=== PATIENT | male | born 1960 | race Caucasian/White ===

== ENCOUNTER → 2020-01-16 | Outpatient (CLI) | payer BC ==
[2020-01-16 15:42] LABS: Chol/HDL Ratio 3.62
== END | disposition home or self-care (01) ==
LOC: LABWHC1 07:21
PROVIDERS: ATTEND Internal Medicine Cardiovascular Disease
DX: E78.2 Mixed hyperlipidemia (principal)
CPT/HCPCS: 36415; 80061; 84450; 84460

== ENCOUNTER → 2020-12-25 | Outpatient (CLI) | payer BC ==
[2020-12-25 13:51] LABS: Chol/HDL Ratio 3.17; LDL Cholesterol,Calculated 63.2 mg/dL (0.0-131.0); VLDL Calculation 27.8 mg/dL (5.00-40.00)
== END | disposition home or self-care (01) ==
LOC: LABWHC1 07:37
PROVIDERS: ATTEND Internal Medicine Cardiovascular Disease
DX: E78.2 Mixed hyperlipidemia (principal)
CPT/HCPCS: 36415; 80061; 84450; 84460

== ENCOUNTER 2021-07-07 15:37 | Inpatient (IN) | payer BC ==
--- NOTE | 2021-07-07 16:10 | ED ---
Chest Pain HPI - General Source: patient, RN notes reviewed Mode of arrival: ambulatory Limitations: no limitations <Igor Cheung - Last Filed: 07/07/21 16:10> <Siria Thomas - Last Filed: 07/07/21 18:00> - General Stated Complaint: chest pain,2 nitros already,feels like heart attac Time Seen by Provider: 07/07/21 16:07 - History of Present Illness Initial Comments: 61-year-old male presents emergency Department chief complaint of chest pain. Patient states started while he was shoveling snow. Patient did take 2 nitro which alleviated most of his pain still has mild pain. Patient states he feels slightly short of breath. No pleuritic pain. Patient denies any fevers or chills. Patient has no nausea vomiting. Patient had prior GA, has one sent. Patient does see cardiology. Patient did take full dose aspirin prior arrival. (Igor Cheung) - Related Data Home Medications Medication Instructions Recorded Confirmed ALPRAZolam 0.5 mg PO BID PRN 01/10/16 07/07/21 Albuterol Sulfate [Ventolin HFA] 2 puff INHALATION RT-QID 07/07/21 07/07/21 Beclomethasone Dipropionate [Qvar 2 puff INHALATION RT-BID 07/07/21 07/07/21 40 mcg Redihaler] Metoprolol Tartrate [Lopressor] 25 mg PO BID 07/07/21 07/07/21 oxyCODONE-APAP 7.5-325MG [Percocet 1 tab PO Q8H PRN 07/07/21 07/07/21 7.5-325 mg] Previous Rx's Medication Instructions Recorded Aspirin 325 mg PO DAILY #30 tab 01/14/16 Atorvastatin [Lipitor] 80 mg PO HS #30 tab 01/14/16 Allergies Allergy/AdvReac Type Severity Reaction Status Date / Time No Known Allergies Allergy Verified 07/07/21 17:45 Review of Systems ROS Other: All systems not noted in ROS Statement are negative. <Igor Cheung - Last Filed: 07/07/21 16:10> ROS Other: All systems not noted in ROS Statement are negative. <Siria Thomas - Last Filed: 07/07/21 18:00> ROS Statement: Those systems with pertinent positive or pertinent negative responses have been documented in the HPI. 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) Past Anesthesia/Blood Transfusion Reactions: No Reported Reaction Past Psychological History: No Psychological Hx Reported Past Alcohol Use History: None Reported Past Drug Use History: Marijuana - Past Family History Mother Family Medical History: Cancer <Igor Cheung - Last Filed: 07/07/21 16:10> Course Vital Signs 07/07/21 07/07/21 16:07 17:57 Temperature 97.7 F Pulse Rate 81 70 Respiratory 18 18 Rate Blood Pressure 140/94 122/94 O2 Sat by Pulse 95 Oximetry Chest Pain MDM <Siria Thomas - Last Filed: 07/07/21 18:00> - [facility] Patient was seen and evaluated upon arrival to the emergency department. 61-year-old, known coronary artery disease presenting with exertional chest pain that resolved with nitro. Patient 325 of aspirin this morning therefore repeat dose was not indicated, he did take nitro prior to arrival with resolution of his chest pain, nitro ointment was ordered Initial EKG was nonischemic, labs and imaging were ordered. Troponin is indeterminate. Given the patient's risk factors we will plan to admit him for unstable angina. This plan was discussed with Dr. Enriquez who accepts the admission, and Dr Samaniego who agrees with ASA, Nitro, Heparin, recommends contact cardiology immediately for any recurrent chest pain. (Siria Thomas) Disposition <Igor Cheung - Last Filed: 07/07/21 16:10> Is patient prescribed a controlled substance at d/c from ED?: No <Siria Thomas - Last Filed: 07/07/21 18:00> Clinical Impression: Unstable angina Disposition: ADMITTED IP TO THIS HOSP Condition: Serious Referrals: Hesham Browne MD [Primary Care Provider] - 1-2 days
[2021-07-07] MEDS ORDERED: NITROGLYCERIN OINT 1 INCH/GM PACKET TOPICAL STA (16:38)
[2021-07-07] MEDS ORDERED: ASPIRIN 81 MG PO STA (16:38)
[2021-07-07 17:03] LABS: Basophils # (A) 0.1 k/uL (0-0.2); Basophils % (A) 1 %; Eosinophils # (A) 0.1 k/uL (0-0.7); Eosinophils % (A) 1 %; HCT 47.5 % (39.0-53.0); HGB 15.7 gm/dL (13.0-17.5); Lymphocytes # (A) 1.9 k/uL (1.0-4.8); Lymphocytes % (A) 21 %; MCH 31.5 pg (25.0-35.0); MCHC 33.2 g/dL (31.0-37.0); MCV 95.1 fL (80.0-100.0); Monocytes # (A) 0.6 k/uL (0-1.0); Monocytes % (A) 6 %; Neutrophils # (A) 6.4 k/uL (1.3-7.7); Neutrophils % (A) 70 %; Platelet Count 355 k/uL (150-450); RDW 13.9 % (11.5-15.5); WBC 9.1 k/uL (3.8-10.6)
[2021-07-07 17:07] LABS: INR 0.9 (<1.2); Partial Thromboplastin Time 22.9 sec (22.0-30.0); Prothrombin Time 9.8 sec (9.0-12.0)
[2021-07-07 17:11] LABS: Albumin 4.6 g/dL (3.5-5.0); Calcium 9.7 mg/dL (8.4-10.2); Potassium 4.2 mmol/L (3.5-5.1); Total Bilirubin 1.4 mg/dL (0.2-1.3); Total Protein 7.6 g/dL (6.3-8.2)
--- NOTE | 2021-07-07 17:40 | XR ---
EXAMINATION TYPE: XR chest 2V DATE OF EXAM: 07/07/2021 COMPARISON: 05/16/2021 HISTORY: Chest pain TECHNIQUE: 2 views FINDINGS: Heart is normal. Lungs are clear of consolidation. There are no hilar masses. Costophrenic angles are clear. Bony thorax is intact. There is some flattening of the diaphragm. IMPRESSION: No active cardiopulmonary disease. Normal heart. No change. There is probably some COPD.
[2021-07-07] MEDS ORDERED: HEPARIN SODIUM 1,000 UN/ML (10ML VL) IV ONE (17:51)
[2021-07-07] MEDS ORDERED: HEPARIN SOD,PORK IN 0.45% NACL 25,000 UNIT in 0.45% NACL 1 250ML.BAG IV SCH (18:00)
[2021-07-07] MEDS: NITROGLYCERIN OINT 1 INCH/GM PACKET TOPICAL SCH (18:56)
[2021-07-07] MEDS ORDERED: ALPRAZolam 0.5 MG TAB PO PRN (21:38)
[2021-07-07] MEDS: oxyCODONE-APAP 7.5-325MG 1 EACH TAB PO PRN (21:53)
[2021-07-07] MEDS: METOPROLOL TARTRATE 25 MG TAB PO SCH (21:54)
[2021-07-07] MEDS: ATORVASTATIN 80 MG TAB PO SCH (21:54)
[2021-07-08] MEDS ORDERED: HEPARIN SODIUM 1,000 UN/ML (10ML VL) IVP STA (02:26)
[2021-07-08] MEDS: NITROGLYCERIN OINT 1 INCH/GM PACKET TOPICAL SCH ×3 (06:53→20:19)
[2021-07-08] MEDS: ALBUTEROL NEBULIZED 2.5 MG/3 ML INHALATION SCH ×4 (08:50→19:47)
[2021-07-08] MEDS ORDERED: ASPIRIN 325 MG TAB PO SCH (09:00)
[2021-07-08] MEDS: METOPROLOL TARTRATE 25 MG TAB PO SCH ×2 (09:39→19:41)
[2021-07-08 09:49] LABS: Chol/HDL Ratio 2.72 Ratio; LDL Cholesterol,Calculated 62.7 mg/dL (0.0-131.0); VLDL Calculation 18.34 mg/dL (5.00-40.00)
[2021-07-08] MEDS ORDERED: NITROGLYCERIN SL TABS 0.4 MG TAB SUBLINGUAL PRN (10:00)
[2021-07-08] MEDS ORDERED: ALPRAZolam 0.25 MG TAB PO PRN (10:00)
[2021-07-08] MEDS ORDERED: ALPRAZolam 0.5 MG TAB PO PRN (10:00)
--- NOTE | 2021-07-08 10:04 | P.CRDCN ---
History of Present Illness History of present illness: HISTORY OF PRESENTING ILLNESS This is a pleasant 61-year-old male past medical history significant for coronary artery disease s/p PCI to mid RCA in 2016, dyslipidemia, COPD, former nicotine dependence. He follows in the office with Dr Barreto. We have been asked to see in consultation for chest pain. Patient is seen and examined in the emergency department. Patient was shoveling snow yesterday and started to have left sided chest discomfort. Describes it as heaviness, as someone sitting on his chest. This pain is similar to when he had his NC in 2016. It lasted over an hour until he arrived to the emergency department and had a nitro patch placed. He also took 2 sublingual nitros at home with some relief. Aggravated by activity. Associated symptoms include shortness of breath. He denies nausea, vomiting, diaphoresis, lightheadedness, dizziness, syncope or near syncope. He is a former smoker, quit in 2016. DIAGNOSTICS EKG reveals sinus rhythm, heart rate 79, LVH, Last Cardiac Catheterization January 2016 revealed acutely occluded RCA, left main coronary artery is heavily calcified, free of stenosis, circumflex coronary artery shows a 95% ostial stenosis. Patient underwent PCI mid RCA Most recent stress test Cardiolite 02/2020 was negative for reversible ischemia. Chest xray no acute cardiopulmonary disease. Laboratory reviewed, CBC unremarkable, sodium 138, potassium 4.2, BUN 17, serum creatinine 1.05, magnesium 2.0, proBNP 74, troponin negative-->0.26, 0.26 covid negative Current home medications include metoprolol tartrate 25 mg twice a day, atorvastatin 80 mg nightly, aspirin 325 mg daily REVIEW OF SYSTEMS At the time of my exam: CONSTITUTIONAL: Denies fever or chills. CARDIOVASCULAR: Denies chest pain, shortness of breath, orthopnea, PND or palpitations. RESPIRATORY: Denies cough. GASTROINTESTINAL: Denies abdominal pain, diarrhea, constipation, nausea or vomiting. MUSCULOSKELETAL: Denies myalgias. NEUROLOGIC: Denies numbness, tingling, headache or weakness. ENDOCRINE: Denies fatigue, weight change, polydipsia or polyurina. GENITOURINARY: Denies burning, hematuria or urgency with micturation. HEMATOLOGIC: Denies history of anemia or bleeding. PHYSICAL EXAMINATION Vitals reviewed CONSTITUTIONAL: No apparent distress. HEENT: Head is normocephalic. Pupils are equal, round. Sclerae anicteric. Mucous membranes of the mouth are moist. No JVD. No carotid bruit. CHEST EXAMINATION: Lungs are clear to auscultation. No chest wall tenderness is noted on palpation or with deep breathing. HEART EXAMINATION: Regular rate and rhythm. S1, S2 heard. No murmurs, gallops or rub. ABDOMEN: Soft, nontender. Positive bowel sounds. EXTREMITIES: 2+ peripheral pulses, no lower extremity edema and no calf tenderness. SKIN: warm,d ry NEUROLOGIC EXAMINATION: Patient is awake, alert and oriented x3. ASSESSMENT NSTEMI Coronary artery disease s/p PCI to mid RCA in 2016 Dyslipidemia History of COPD Former nicotine dependence. PLAN -Obtain 2D echocardiogram and doppler study to assess cardiac structure and function. -Recommend cardiac catheterization at this time. Patient is agreeable. Plan for cardiac catheterization with Dr. Marroquin today. -I have discussed the risks, benefits and alternative therapies for the above- mentioned procedure and for both sedation/analgesia as well as necessary blood product administration, if indicated, as they pertain to this patient. The patient has indicated understanding and acceptance of the risks and procedures discussed. Questions have been answered appropriately and he is agreeable to move forward with the above-stated procedure. -Further recommendations based on clinical course -Follow up with Dr. Marroquin on discharge Thank you kindly for this consultation. Nurse Practitioner note has been reviewed, I agree with a documented findings and plan of care. Patient was seen and examined. 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) Past Anesthesia/Blood Transfusion Reactions: No Reported Reaction Past Psychological History: No Psychological Hx Reported Past Alcohol Use History: None Reported Past Drug Use History: Marijuana - Past Family History Mother Family Medical History: Cancer Medications and Allergies Home Medications Medication Instructions Recorded Confirmed Type ALPRAZolam 0.5 mg PO BID PRN 01/10/16 07/07/21 History Aspirin 325 mg PO DAILY #30 tab 01/14/16 07/07/21 Rx Atorvastatin [Lipitor] 80 mg PO HS #30 tab 01/14/16 07/07/21 Rx Albuterol Sulfate [Ventolin HFA] 2 puff INHALATION RT-QID 07/07/21 07/07/21 History Beclomethasone Dipropionate [Qvar 2 puff INHALATION RT-BID 07/07/21 07/07/21 History 40 mcg Redihaler] Metoprolol Tartrate [Lopressor] 25 mg PO BID 07/07/21 07/07/21 History oxyCODONE-APAP 7.5-325MG [Percocet 1 tab PO Q8H PRN 07/07/21 07/07/21 History 7.5-325 mg] Allergies Allergy/AdvReac Type Severity Reaction Status Date / Time No Known Allergies Allergy Verified 07/07/21 17:45 Physical Exam Vitals: Vital Signs Temp Pulse Resp BP Pulse Ox 07/08/21 02:45 73 14 106/67 95 07/08/21 01:09 81 15 103/68 95 07/07/21 22:41 81 16 116/96 95 07/07/21 17:57 70 18 122/94 07/07/21 16:07 97.7 F 81 18 140/94 95 Intake and Output 07/07/21 07/08/21 07/08/21 22:59 06:59 14:59 Intake Total 75.833 Balance 75.833 Intake: Intake, IV Titration 75.833 Amount Heparin Sod,Pork in 0.45% 75.833 NaCl 25,000 unit In 0.45 % NaCl 1 250ml.bag @ 9. 381 UNITS/KG/HR 10 mls/hr IV .Q24H [facility] Rx#: [id number] Other: Weight 106.594 kg Results 07/07/21 16:34 07/07/21 16:34 Cardiac Enzymes 07/07/21 07/07/21 07/07/21 Range/Units 16:34 16:34 21:25 AST 41 (17-59) U/L Troponin I 0.023 0.265 H* (0.000-0.034) ng/mL 07/08/21 Range/Units 00:15 AST (17-59) U/L Troponin I 0.260 H* (0.000-0.034) ng/mL Coagulation 07/07/21 07/08/21 Range/Units 16:34 00:58 PT 9.8 (9.0-12.0) sec APTT 22.9 33.8 H (22.0-30.0) sec CBC 07/07/21 Range/Units 16:34 WBC 9.1 (3.8-10.6) k/uL RBC 5.00 (4.30-5.90) m/uL Hgb 15.7 (13.0-17.5) gm/dL Hct 47.5 (39.0-53.0) % Plt Count 355 (150-450) k/uL Comprehensive Metabolic Panel 07/07/21 Range/Units 16:34 Sodium 138 (137-145) mmol/L Potassium 4.2 (3.5-5.1) mmol/L Chloride 102 (98-107) mmol/L Carbon Dioxide 25 (22-30) mmol/L BUN 17 (9-20) mg/dL Creatinine 1.05 (0.66-1.25) mg/dL Glucose 117 H (74-99) mg/dL Calcium 9.7 (8.4-10.2) mg/dL AST 41 (17-59) U/L ALT 53 H (4-49) U/L Alkaline Phosphatase 100 (38-126) U/L Total Protein 7.6 (6.3-8.2) g/dL Albumin 4.6 (3.5-5.0) g/dL Current Medications Generic Name Dose Route Start Last Admin Trade Name Freq PRN Reason Stop Dose Admin Albuterol Sulfate 2.5 mg 07/08/21 08:00 Albuterol Nebulized 2.5 Mg/3 Ml INHALATION RT-QID AGUILAR Alprazolam 0.5 mg 07/07/21 21:38 07/07/21 21:54 Alprazolam 0.5 Mg Tab PO 0.5 mg BID PRN Administration Anxiety Aspirin 325 mg 07/08/21 09:00 Aspirin 325 Mg Tab PO DAILY AGUILAR Atorvastatin Calcium 80 mg 07/07/21 21:45 07/07/21 21:54 Atorvastatin 80 Mg Tab PO 80 mg HS AGUILAR Administration Heparin Sodium/Sodium Chloride 250 mls @ 10 mls/hr 07/07/21 18:00 07/08/21 02:37 25,000 unit/ Sodium Chloride IV 12.381 units/kg/hr .Q24H AGUILAR 13.197 mls/hr Titration Protocol 9.381 UNITS/KG/HR Metoprolol Tartrate 25 mg 07/07/21 21:45 07/07/21 21:54 Metoprolol Tartrate 25 Mg Tab PO 25 mg BID [facility] Administration Nitroglycerin 1 inch 07/07/21 18:00 07/08/21 06:56 Nitroglycerin Oint 1 Inch/Gm Packet TOPICAL Not Given Q6HR [facility] Oxycodone/Acetaminophen 1 each 07/07/21 21:38 07/07/21 21:53 Oxycodone-Apap 7.5-325mg 1 Each Tab PO 1 each Q8H PRN Administration Moderate to Severe Pain Intake and Output 07/07/21 07/08/21 07/08/21 22:59 06:59 14:59 Intake Total 75.833 Balance 75.833 Intake: Intake, IV Titration 75.833 Amount Heparin Sod,Pork in 0.45% 75.833 NaCl 25,000 unit In 0.45 % NaCl 1 250ml.bag @ 9. 381 UNITS/KG/HR 10 mls/hr IV .Q24H [facility] Rx#: [id number] Other: Weight 106.594 kg 07/07/21 16:34 07/07/21 16:34
[2021-07-08] MEDS ORDERED: fentaNYL (PF) 50 MCG/ML 2 ML AMP ONE (10:33)
[2021-07-08] MEDS ORDERED: MIDAZOLAM 2 MG/2 ML VIAL IV ONE (10:51)
[2021-07-08] MEDS ORDERED: fentaNYL (PF) 50 MCG/ML 2 ML AMP IV ONE (10:51)
[2021-07-08] MEDS ORDERED: IV FLUID CONTINUATION 900 ML IV ONE (10:51)
[2021-07-08] MEDS ORDERED: LIDOCAINE 1% INJ 10MG/ML (20 ML MDV) SQ ONE (10:53)
[2021-07-08] MEDS ORDERED: HEPARIN SODIUM 1,000 UN/ML (10ML VL) ONE (11:56)
[2021-07-08] MEDS ORDERED: ADENOSINE 90 MG in SODIUM CHLORIDE 0.9% 60 ML IVP ONE (12:15)
[2021-07-08] MEDS ORDERED: IOPAMIDOL-370 125ML BTL INJ ONE (12:19)
--- NOTE | 2021-07-08 12:57 | CE ---
CARDIAC ELECTROPHYSIOLOGY REPORT IFR MEASUREMENT: Mr. Garner is a 61-year-old male with known history of coronary artery disease status post percutaneous revascularization in 2016 who presented with an episode of chest discomfort and mild troponin elevation. He was evaluated by Dr. Marroquin and underwent cardiac catheterization and was found to have patent stent in the mid distal segment of the RCA and a moderate 50-70 percent stenosis in the mid RCA that was noted in 2016. Because of his presentation, recommendation made regarding IFR measurement and depending on that, further recommendations will be made. The procedure as well as the risks and the complications were discussed with the patient who was in full understanding and agreement. PROCEDURE DESCRIPTION: Using the 6-Sloven[place] FR4 guiding catheter, the right coronary ostium was cannulated. Following that, a Doppler flow wire was advanced across the RCA and positioned distally. The patient received 5000 units of intravenous heparin. Subsequently, IFR was measured at 0.91 and the FFR after adenosine infusion per protocol was 0.84. At that time, the wire and the guiding catheter were withdrawn back in the guiding catheter. Images were obtained and repeated. Those images revealed stable segment. At that point, the guiding catheter was removed. The sheath was sutured in place. The patient was returned to his room in stable condition. Of note, the patient had no chest discomfort during the procedure. RESULT: Non hemodynamically significant mid RCA lesion with an FFR of 0.84. RECOMMENDATIONS: Patient will be continued on maximal medical therapy and depending on his progress, further recommendations will be made. Those findings and recommendations were discussed with the patient and his family, and they are in full understanding and agreement. Duration of sedation is 21 minutes. MMODL / IJN: [id number] /
--- NOTE | 2021-07-08 13:04 | P.HPIM ---
History of Present Illness H&P Date: 07/08/21 Chief Complaint: Chest pain The patient is a history and physical on a 61-year-old white male who was admitted secondary to severe chest pressure with shortness of breath. Un derlying history of CAD and COPD in the past. Treated for hypertension hyperlipidemia and chronic pain elements. No overt diaphoresis or syncope stated. Given his risk factors he is appropriately admitted Review of Systems Constitutional: Denies chills, Denies fever Eyes: denies blurred vision, denies pain Ears, nose, mouth and throat: Denies headache, Denies sore throat Cardiovascular: Reports as per HPI, Reports chest pain, Denies palpitations Respiratory: Denies cough Gastrointestinal: Denies abdominal pain, Denies diarrhea, Denies nausea, Denies vomiting Musculoskeletal: Denies myalgias 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) Past Anesthesia/Blood Transfusion Reactions: No Reported Reaction Past Psychological History: No Psychological Hx Reported Past Alcohol Use History: None Reported Past Drug Use History: Marijuana - Past Family History Mother Family Medical History: Cancer Medications and Allergies Home Medications Medication Instructions Recorded Confirmed Type ALPRAZolam 0.5 mg PO BID PRN 01/10/16 07/07/21 History Aspirin 325 mg PO DAILY #30 tab 01/14/16 07/07/21 Rx Atorvastatin [Lipitor] 80 mg PO HS #30 tab 01/14/16 07/07/21 Rx Albuterol Sulfate [Ventolin HFA] 2 puff INHALATION RT-QID 07/07/21 07/07/21 History Beclomethasone Dipropionate [Qvar 2 puff INHALATION RT-BID 07/07/21 07/07/21 History 40 mcg Redihaler] Metoprolol Tartrate [Lopressor] 25 mg PO BID 07/07/21 07/07/21 History oxyCODONE-APAP 7.5-325MG [Percocet 1 tab PO Q8H PRN 07/07/21 07/07/21 History 7.5-325 mg] Allergies Allergy/AdvReac Type Severity Reaction Status Date / Time No Known Allergies Allergy Verified 07/07/21 17:45 Physical Exam Vitals: Vital Signs Temp Pulse Resp BP Pulse Ox 07/08/21 09:40 90 18 130/84 97 07/08/21 08:58 86 16 07/08/21 08:50 80 16 07/08/21 07:56 74 22 124/88 97 07/08/21 02:45 73 14 106/67 95 07/08/21 01:09 81 15 103/68 95 07/07/21 22:41 81 16 116/96 95 07/07/21 17:57 70 18 122/94 07/07/21 16:07 97.7 F 81 18 140/94 95 Intake and Output 07/07/21 07/08/21 07/08/21 22:59 06:59 14:59 Intake Total 75.833 606.44 Balance 75.833 606.44 Intake: IV 520 Intake, IV Titration 75.833 86.44 Amount Heparin Sod,Pork in 0.45% 75.833 86.44 NaCl 25,000 unit In 0.45 % NaCl 1 250ml.bag @ 9. 381 UNITS/KG/HR 10 mls/hr IV .Q24H [facility] Rx#: [id number] Other: Weight 106.594 kg - Constitutional General appearance: no acute distress - EENT Eyes: EOMI - Neck Neck: no lymphadenopathy - Respiratory Respiratory: bilateral: CTA - Cardiovascular Rhythm: regular Heart sounds: normal: S1, S2 Abnormal Heart Sounds: no S3 Gallop - Gastrointestinal General gastrointestinal: soft, no tenderness - Integumentary Integumentary: no cellulitis Results CBC & Chem 7: 07/07/21 16:34 07/07/21 16:34 Labs: Abnormal Lab Results - Last 24 Hours (Table) 07/07/21 07/07/21 07/08/21 Range/Units 16:34 21:25 00:15 APTT (22.0-30.0) sec Glucose 117 H (74-99) mg/dL Total Bilirubin 1.4 H (0.2-1.3) mg/dL ALT 53 H (4-49) U/L Troponin I 0.265 H* 0.260 H* (0.000-0.034) ng/mL 07/08/21 07/08/21 Range/Units 00:58 07:06 APTT 33.8 H 106.1 H* (22.0-30.0) sec Glucose (74-99) mg/dL Total Bilirubin (0.2-1.3) mg/dL ALT (4-49) U/L Troponin I (0.000-0.034) ng/mL Assessment and Plan (1) Unstable angina Current Visit: Yes Status: Acute Code(s): I20.0 - UNSTABLE ANGINA SNOMED Code(s): 2906230 (2) Chest pain Current Visit: No Status: Acute Code(s): R07.9 - CHEST PAIN, UNSPECIFIED SNOMED Code(s): 16196126 (3) Nicotine dependence Current Visit: No Status: Acute Code(s): F17.200 - NICOTINE DEPENDENCE, UNSPECIFIED, UNCOMPLICATED SNOMED Code(s): 22430092 Plan: Rule out myocardial infarction. Check CK-MB and troponin. Reconcile home medications. Appreciate cardiology input. He is a full code otherwise.
[2021-07-08] MEDS: oxyCODONE-APAP 7.5-325MG 1 EACH TAB PO PRN (13:40)
[2021-07-08] MEDS: SODIUM CHLORIDE 0.9% 1,000 ML in EMPTY BAG 1 BAG IV SCH (19:25)
[2021-07-08] MEDS: CLOPIDOGREL 75 MG TAB PO SCH (19:25)
[2021-07-08] MEDS: ISOSORBIDE MONONITRATE ER 30 MG TAB.ER.24H PO SCH (19:25)
[2021-07-08] MEDS: ATORVASTATIN 80 MG TAB PO SCH (19:41)
[2021-07-08] MEDS: FLUTICASONE 110 MCG INHALER INHALATION SCH (19:50)
[2021-07-09] MEDS: oxyCODONE-APAP 7.5-325MG 1 EACH TAB PO PRN (03:20)
[2021-07-09] MEDS: SODIUM CHLORIDE 0.9% 1,000 ML in EMPTY BAG 1 BAG IV SCH (06:54)
[2021-07-09] MEDS ORDERED: HEPARIN SODIUM,PORCINE 2,500 UNIT in SODIUM CHLORIDE 0.9% 250 ML IRRIGATION PRN (07:00)
[2021-07-09] MEDS ORDERED: HEPARIN SODIUM,PORCINE 10,000 UNIT in SODIUM CHLORIDE 0.9% 1,000 ML IRRIGATION PRN (07:00)
--- NOTE | 2021-07-09 07:47 | ECHOF ---
Referral Reason:chest pain, elevated troponin MEASUREMENTS -------- HEIGHT: 162.6 cm WEIGHT: 106.6 kg BP: IVSd: 0.9 cm (0.6 - 1.1) LVIDd: 3.1 cm (3.9 - 5.3) LVPWd: 1.1 cm (0.6 - 1.1) IVSs: 1.2 cm LVIDs: 2.5 cm LVPWs: 1.3 cm MV E Farrukh: 0.70 m/s MV DecT: 225 ms MV A Farrukh: 0.69 m/s MV E/A Ratio: 1.02 RAP: 5.00 mmHg RVSP: 13.38 mmHg FINDINGS -------- This was a technically difficult study with suboptimal views. This was a technically difficult stud y with suboptimal parasternal views. The left ventricular size is normal. Left ventricular wall thickness is normal. Overall left vent ricular systolic function is normal with, an EF between 55 - 60 %. The RV was not well visualized. The left atrium was not well visualized. The right atrium was not well visualized. Lumason used The aortic valve was not well visualized. There is trace mitral regurgitation. Trace tricuspid regurgitation present. Right ventricular systolic pressure is normal at < 35 mmHg. The pulmonic valve was not well visualized. The aortic root size is normal. IVC Not well visulized. There is no pericardial effusion. CONCLUSIONS -------- 1. This was a technically difficult study with suboptimal parasternal views. 2. The left ventricular size is normal. 3. Left ventricular wall thickness is normal. 4. Overall left ventricular systolic function is normal with, an EF between 55 - 60 %. 5. There is trace mitral regurgitation. 6. Trace tricuspid regurgitation present. 7. There is no pericardial effusion. HEALTH INFORMATION ADMINISTRATOR: Joi Balderrama RD
[2021-07-09 08:23] LABS: Basophils # (A) 0.1 k/uL (0-0.2); Basophils % (A) 1 %; Eosinophils # (A) 0.1 k/uL (0-0.7); Eosinophils % (A) 1 %; HCT 42.3 % (39.0-53.0); HGB 13.8 gm/dL (13.0-17.5); Lymphocytes # (A) 1.9 k/uL (1.0-4.8); Lymphocytes % (A) 25 %; MCH 31.1 pg (25.0-35.0); MCHC 32.7 g/dL (31.0-37.0); MCV 95.3 fL (80.0-100.0); Mean Platelet Volume 7.1; Monocytes # (A) 0.5 k/uL (0-1.0); Monocytes % (A) 6 %; Neutrophils # (A) 4.9 k/uL (1.3-7.7); Neutrophils % (A) 65 %; Platelet Count 310 k/uL (150-450); RBC 4.44 m/uL (4.30-5.90); RDW 13.5 % (11.5-15.5); WBC 7.6 k/uL (3.8-10.6)
[2021-07-09 08:34] LABS: African American GFR (CKD) >90 (>60 ml/min/1.73 sqM); Anion Gap 8 mmol/L; Blood Urea Nitrogen 12 mg/dL (9-20); Carbon Dioxide 23 mmol/L (22-30); Chloride 108 mmol/L (98-107); Glucose 115 mg/dL (74-99); Non-African American GFR(CKD) >90 (>60 ml/min/1.73 sqM); Potassium 4.3 mmol/L (3.5-5.1); Sodium 139 mmol/L (137-145)
--- NOTE | 2021-07-09 08:54 | P.DS ---
Providers Date of admission: 07/08/21 14:47 Attending physician: Brandi Garcia Consults: 07/07/21 17:51 Consult Physician Urgent Consulting Provider: Anish Samaniego Consult Reason/Comments: unstable angina Do you want consulting provider notified?: Already Contacted Primary care physician: Hesham Browne - Discharge Diagnosis(es) (1) Unstable angina Current Visit: Yes Status: Acute (2) Chest pain Current Visit: No Status: Acute (3) Nicotine dependence Current Visit: No Status: Acute Hospital Course: This is a discharge summary and a 61-year-old white male essentially admitted for unstable angina. Elevated troponin was noted and he ended up having cardiac catheterization. They did not find any significant stenosis but due to his findings, he is placed on Plavix with aspirin. The patient is discharged in stable condition once cleared by cardiology. The patient is tolerating diet and voiding without difficulty and returned to normal mental baseline. I do suspect he will need hearing aid due to presbycusis. Patient Condition at Discharge: Serious Plan - Discharge Summary Discharge Rx Participant: Yes New Discharge Prescriptions: New Aspirin 81 mg PO DAILY #30 tab Nitroglycerin Sl Tabs [Nitrostat] 0.4 mg SUBLINGUAL Q5M PRN #50 tab PRN Reason: Chest Pain Clopidogrel [Plavix] 75 mg PO DAILY #30 tab Isosorbide Mononitrate ER [Imdur] 30 mg PO DAILY #30 tablet Continue ALPRAZolam 0.5 mg PO BID PRN PRN Reason: Anxiety Aspirin 325 mg PO DAILY #30 tab Atorvastatin [Lipitor] 80 mg PO HS #30 tab Albuterol Sulfate [Ventolin HFA] 2 puff INHALATION RT-QID Beclomethasone Dipropionate [Qvar 40 mcg Redihaler] 2 puff INHALATION RT-BID oxyCODONE-APAP 7.5-325MG [Percocet 7.5-325 mg] 1 tab PO Q8H PRN PRN Reason: Pain Metoprolol Tartrate [Lopressor] 25 mg PO BID Discharge Medication List ALPRAZolam 0.5 mg PO BID PRN 01/10/16 [History] Aspirin 325 mg PO DAILY #30 tab 01/14/16 [Rx] Atorvastatin [Lipitor] 80 mg PO HS #30 tab 01/14/16 [Rx] Albuterol Sulfate [Ventolin HFA] 2 puff INHALATION RT-QID 07/07/21 [History] Beclomethasone Dipropionate [Qvar 40 mcg Redihaler] 2 puff INHALATION RT-BID 07/07/21 [History] Metoprolol Tartrate [Lopressor] 25 mg PO BID 07/07/21 [History] oxyCODONE-APAP 7.5-325MG [Percocet 7.5-325 mg] 1 tab PO Q8H PRN 07/07/21 [History] Aspirin 81 mg PO DAILY #30 tab 07/09/21 [Rx] Clopidogrel [Plavix] 75 mg PO DAILY #30 tab 07/09/21 [Rx] Isosorbide Mononitrate ER [Imdur] 30 mg PO DAILY #30 tablet 07/09/21 [Rx] Nitroglycerin Sl Tabs [Nitrostat] 0.4 mg SUBLINGUAL Q5M PRN #50 tab 07/09/21 [Rx] Follow up Appointment(s)/Referral(s): Hesham Browne MD [Primary Care Provider] - 1-2 days Sai Marrouqin MD [STAFF PHYSICIAN] - 07/15/21 10:30 am
[2021-07-09] MEDS: ALBUTEROL NEBULIZED 2.5 MG/3 ML INHALATION SCH (08:56)
[2021-07-09] MEDS: METOPROLOL TARTRATE 25 MG TAB PO SCH (08:56)
[2021-07-09] MEDS: ISOSORBIDE MONONITRATE ER 30 MG TAB.ER.24H PO SCH (08:56)
[2021-07-09] MEDS: CLOPIDOGREL 75 MG TAB PO SCH (08:56)
[2021-07-09] MEDS: FLUTICASONE 110 MCG INHALER INHALATION SCH (08:57)
[2021-07-09] MEDS ORDERED: ASPIRIN 81 MG PO SCH (09:00)
[2021-07-09 09:01] VITALS: BP 133/77; PULSE 78; RESP 18; TEMP 98.2
--- NOTE | 2021-07-09 12:57 | P.PN ---
Subjective Progress Note Date: 07/09/21 HISTORY OF PRESENT ILLNESS: This is a pleasant 61-year-old male past medical history significant for coronary artery disease s/p PCI to mid RCA in 2016, dyslipidemia, COPD, former n icotine dependence. He follows in the office with Dr Barreto. We have been asked to see in consultation for chest pain. Patient is seen and examined in the emergency department. Patient was shoveling snow yesterday and started to have left sided chest discomfort. Describes it as heaviness, as someone sitting on his chest. This pain is similar to when he had his [place] in 2016. It lasted over an hour until he arrived to the emergency department and had a nitro patch placed. He also took 2 sublingual nitros at home with some relief. Aggravated by activity. Associated symptoms include shortness of breath. He denies nausea, vomiting, diaphoresis, lightheadedness, dizziness, syncope or near syncope. He is a former smoker, quit in 2016. DIAGNOSTICS EKG reveals sinus rhythm, heart rate 79, LVH, Last Cardiac Catheterization January 2016 revealed acutely occluded RCA, left main coronary artery is heavily calcified, free of stenosis, circumflex coronary artery shows a 95% ostial stenosis. Patient underwent PCI mid RCA Most recent stress test Cardiolite 02/2020 was negative for reversible ischemia. Chest xray no acute cardiopulmonary disease. Laboratory reviewed, CBC unremarkable, sodium 138, potassium 4.2, BUN 17, serum creatinine 1.05, magnesium 2.0, proBNP 74, troponin negative-->0.26, 0.26 covid negative Current home medications include metoprolol tartrate 25 mg twice a day, atorvastatin 80 mg nightly, aspirin 325 mg daily 07/09/2021 Patient examined this morning at the bedside. He underwent cardiac cath with Dr. Marroquin and Dr. Harris. Patient was found to have nonhemodynamically significant mid RCA lesion with FFR of 0.84. Medical management was recommended. The patient denies chest pain or pressure this morning. He denies shortness of breath. Right groin cath site is soft with no hematoma noted. Vital signs are stable. PHYSICAL EXAM: VITAL SIGNS: Reviewed. GENERAL: Well-developed in no acute distress. NECK: Supple. No JVD or thyromegaly LUNGS: Respirations even and unlabored. Lungs essentially clear to auscultation bilaterally. HEART: Regular rate and rhythm. S1 and S2 heard. EXTREMITIES: Normal range of motion. No clubbing or cyanosis. Peripheral pulses intact. No lower extremity edema ASSESSMENT: NSTEMI Coronary artery disease s/p PCI to mid RCA in 2016 Dyslipidemia History of COPD Former nicotine dependence PLAN: Continue current cardiac medications Patient may be discharged home today from a cardiac standpoint and follow up with Dr. Marroquin Nurse practitioner note has been reviewed by physician. Signing provider agrees with the documented findings, assessment, and plan of care. Objective - Vital Signs Vital signs: Vital Signs Temp 98.2 F 07/09/21 08:00 Pulse 78 07/09/21 08:00 Resp 18 07/09/21 08:00 BP 133/77 07/09/21 08:00 Pulse Ox 93 L 07/09/21 08:00 Intake & Output 07/08/21 07/09/21 07/09/21 18:59 06:59 18:59 Intake Total 806.44 120 Output Total 450 400 Balance 356.44 -400 120 Weight 106.594 kg Intake: IV 720 Sodium Chloride 0.9% 1, 200 000 ml In Empty Bag 1 bag @ 1 ML/KG/HR 106.594 mls /hr IV .Q9H23M AGUILAR Rx#: [id number] Intake, IV Titration 86.44 Amount Heparin Sod,Pork in 0.45% 86.44 NaCl 25,000 unit In 0.45 % NaCl 1 250ml.bag @ 9. 381 UNITS/KG/HR 10 mls/hr IV .Q24H AGUILAR Rx#: [id number] Oral 120 Output: Urine 450 400 Other: # Voids 2 - Labs CBC & Chem 7: 07/09/21 07:35 07/09/21 07:35 Labs: Abnormal Lab Results - Last 24 Hours (Table) 07/09/21 Range/Units 07:35 Chloride 108 H (98-107) mmol/L Glucose 115 H (74-99) mg/dL
--- NOTE | 2021-07-09 14:51 | CC ---
CARDIAC CATHETERIZATION REPORT CARDIAC CATHETERIZATION: INDICATION: Acute cel-WM-bghtkko-elevation AK. PROCEDURE NOTE: After obtaining informed consent, left heart catheterization and coronary angiogram were performed via the right femoral artery using standard Caprice catheters. Patient tolerated the procedure well without any obvious immediate complications. The patient received moderate conscious sedation. Total sedation time was 18 minutes. FINDINGS: HEMODYNAMICS: Left ventricular end-diastolic pressure is 10-12 mm. There is no significant gradient across the aortic valve. LEFT VENTRICULOGRAM: Not performed. ANGIOGRAPHIC DATA: RIGHT CORONARY ARTERY: Right coronary artery is a large dominant vessel that was previously stented in the proximal and distal portions and in the mid RCA there is a moderate to severe atherosclerotic block. At its worst it seems to be at 70% stenosis. LEFT MAIN CORONARY ARTERY: Appears calcified with mild distal left main stenosis. Divides into left anterior descending coronary artery and circumflex coronary artery. The vessels are calcified. There is an area of a 70-80 percent stenosis in the ostial portion of the circumflex coronary artery, which appears unchanged from previous cardiac catheterization in 2016. The diagonal branch also has a moderate atherosclerotic plaque in the ostial portion. CONCLUSIONS: Moderate to severe obstructive disease in the mid RCA. Critical stenosis involving [place] circumflex coronary artery which appears unchanged. Calcified coronaries with an atherosclerotic plaque in the distal left main. PLAN: Dr. Harris, the on-call tool profiling machine set up operator will perform an FFR of the lesion in the right coronary artery and if this is abnormal, he will undergo angioplasty at the same. MMODL / IJN: [id number] /
== END 2021-07-09 11:45 | disposition home or self-care (01) | DRG 287 ==
LOC: EC 15:37 → 6NMEDSUR 18:14 → OBSVTOIN 07-08 14:47 → 3SCARD 07-08 15:19
PROVIDERS: ADMIT Family Medicine; ATTEND Family Medicine
PROC: 4A023N7 Measurement of Cardiac Sampling and Pressure, Left Heart, Percutaneous Approach (ICD-10-PCS; principal; 2021-07-09)
PROC: B2111ZZ Fluoroscopy of Multiple Coronary Arteries using Low Osmolar Contrast (ICD-10-PCS; 2021-07-09)
PROC: 4A033BC Measurement of Arterial Pressure, Coronary, Percutaneous Approach (ICD-10-PCS; 2021-07-09)
DX: I25.110 Atherosclerotic heart disease of native coronary artery with unstable angina pectoris (principal); Z20.822 Contact with and (suspected) exposure to COVID-19; R79.89 Other specified abnormal findings of blood chemistry; E78.5 Hyperlipidemia, unspecified; F17.210 Nicotine dependence, cigarettes, uncomplicated; G89.29 Other chronic pain; I10 Essential (primary) hypertension; I25.2 Old myocardial infarction; J44.9 Chronic obstructive pulmonary disease, unspecified; Z79.82 Long term (current) use of aspirin; Z79.899 Other long term (current) drug therapy; Z98.61 Coronary angioplasty status; Z87.19 Personal history of other diseases of the digestive system
CPT/HCPCS: 36415; 71046; 80048; 80053; 80061; 83735; 83880; 84484; 85025; 85347; 85610; 85730; 87635; 93005; 93306; 93458; 93571; 94640; 96365; 96366; 99285

== ENCOUNTER → 2022-06-19 | Outpatient (CLI) | payer BC ==
[2022-06-19 17:30] LABS: ALT 37 U/L (10-49); AST 26 U/L (14-35); Chol/HDL Ratio 2.91 Ratio; LDL Cholesterol,Calculated 65.2 mg/dL (0.0-131.0)
== END | disposition home or self-care (01) ==
LOC: LABWHC1 07:11
PROVIDERS: ATTEND Internal Medicine Cardiovascular Disease
DX: E78.2 Mixed hyperlipidemia (principal)
CPT/HCPCS: 36415; 80061; 84450; 84460

== ENCOUNTER → 2022-08-07 | Outpatient (CLI) | payer BC ==
--- NOTE | 2022-08-07 07:47 | US ---
EXAMINATION TYPE: US carotid duplex BILAT DATE OF EXAM: 08/07/2022 COMPARISON: NONE CLINICAL HISTORY: R55 SYNCOPE. TECHNIQUE: Carotid duplex ultrasound examination. Indirect Doppler criteria was utilized. FINDINGS: EXAM MEASUREMENTS: RIGHT: Peak Systolic Velocity (PSV) cm/sec ----- Right CCA: 48.3 ----- Right ICA: 57.1 ----- Right ECA: 54.8 ICA/CCA ratio: 1.2 RIGHT: End Diastole cm/sec ----- Right CCA: 14.2 ----- Right ICA: 18.9 ----- Right ECA: 9.6 LEFT: Peak Systolic Velocity (PSV) cm/sec ----- Left CCA: 60.7 ----- Left ICA: 52.2 ----- Left ECA: 55.6 ICA/CCA ratio: 0.9 LEFT: End Diastole cm/sec ----- Left CCA: 19.3 ----- Left ICA: 21.8 ----- Left ECA: 8.5 VERTEBRALS (direction of flow): Right Vertebral: Antegrade Left Vertebral: Antegrade Rhythm: Normal [employer] NOTES: Mild plaque visualized bilateral carotid bulbs No significant stenosis seen IMPRESSION: Less than 50% stenosis of the bilateral carotid bifurcations. Criteria for Assigning % of Stenosis / Diameter reduction (Estimation based on the indirect measurements of the internal carotid artery velocities (ICA PSV). 1. Normal (no stenosis)=ICA PSV < 125 cm/s: ratio < 2.0: ICA EDV<40 cm/s. 2. Less than 50% stenosis=ICA PSV < 125 cm/s: ratio < 2.0: ICA EDV<40 cm/s. 3. 50 to 69% stenosis=ICA PSV of 125 to 230 cm/s: ration 2.0 ? 4.0: ICA EDV 40-100 cm/s. 4. Greater than 70% stenosis to near occlusion= ICA PSV > 230 cm/s: ratio > 4.0: ICA EDV > 100 cm/s. 5. Near occlusion= ICA PSV velocities may be low or undetectable: variable ratio and ICA EDV. 6. Total occlusion=unable to detect flow.
--- NOTE | 2022-08-07 08:45 | CT ---
EXAMINATION TYPE: CT brain wo con DATE OF EXAM: 08/07/2022 HISTORY: syncope CT DLP: 1108.4 mGycm. Automated Exposure Control for Dose Reduction was Utilized. TECHNIQUE: CT scan of the head is performed without contrast. COMPARISON: Prior CT brain 2010. FINDINGS: There is no acute intracranial hemorrhage or midline shift identified. There is mild diff use ventricular and sulcal prominence consistent with diffuse age-related cerebral atrophy. There is mild low-attenuation in the periventricular white matter consistent with chronic small vessel ischem ic change. The globes are intact and the visualized sinuses are clear. IMPRESSION: No acute intracranial hemorrhage or midline shift. There is mild diffuse age-related ce rebral atrophy and chronic small vessel ischemic change now identified. Source of syncope not Cle[place] y seen.
== END | disposition home or self-care (01) ==
LOC: RADCTMAIN 06:46
PROVIDERS: ATTEND Family Medicine
DX: I65.23 Occlusion and stenosis of bilateral carotid arteries (principal); I67.82 Cerebral ischemia; G31.9 Degenerative disease of nervous system, unspecified
CPT/HCPCS: 70450; 93880

== ENCOUNTER → 2023-05-07 | Outpatient (CLI) | payer MEDICARE ==
[2023-05-07 16:21] LABS: ALT 26 U/L (10-49); AST 25 U/L (14-35); Chol/HDL Ratio 2.92 Ratio; LDL Cholesterol,Calculated 63.6 mg/dL (0.0-131.0)
== END | disposition home or self-care (01) ==
LOC: LABWHC1 09:23
PROVIDERS: ATTEND Internal Medicine Cardiovascular Disease
DX: E78.2 Mixed hyperlipidemia (principal)
CPT/HCPCS: 36415; 80061; 84450; 84460

== ENCOUNTER → 2024-06-13 | Outpatient (CLI) | payer MEDICARE ==
[2024-06-13 10:24] LABS: ALT 34 U/L (10-49); AST 29 U/L (14-35); Chol/HDL Ratio 3.11 Ratio; LDL Cholesterol,Calculated 50.7 mg/dL (0.0-131.0)
== END | disposition home or self-care (01) ==
LOC: LABWHC1 07:40
PROVIDERS: ATTEND Internal Medicine Cardiovascular Disease
DX: E78.2 Mixed hyperlipidemia (principal)
CPT/HCPCS: 36415; 80061; 84450; 84460